=== PATIENT | male | born 1960 | race Two or more races ===

== ENCOUNTER 2017-06-12 09:39 | Emergency (ER) | payer MEDICAID ==
[~2017-06-12] VITALS: Ht 180.3 cm; Wt 105.7 kg
--- NOTE | 2017-06-12 10:00 | NUR ---
[id number]: S/P WITNESSED SEIZURE, Hx OF SEIZURES, TAKES KEPPRA. PATIENT RECEIVED AWAKE AND ALERT. APPEARS IN NO DISTRESS. AO4. SKIN IS WARM TO TOUCH AND NON DIAPHORETIC. PATIENT IS AFEBRILE. VSS. SEIZURE PRECAUTION OBSERVED. IV ACCESS NOTED ON RIGHT WRST
[2017-06-12 10:17] LABS: BASOPHILS # (AUTO) 0.1 /CMM (0.0-0.2); BASOPHILS % (AUTO) 0.7 % (0.0-2.0); EOSINOPHILS # (AUTO) 0.1 /CMM (0.0-0.7); EOSINOPHILS % (AUTO) 0.9 % (0.0-6.0); HEMATOCRIT 35 % (39-51); HEMOGLOBIN 12.4 g/dL (13.5-17.5); LYMPHOCYTES # (AUTO) 1.3 /CMM (0.8-4.8); LYMPHOCYTES % (AUTO) 14.7 % (20.0-44.0); MEAN CORPUSCULAR HEMOGLOBIN 30 PG (26.0-33.0); MEAN CORPUSCULAR HGB CONC 35 g/dl (31.0-36.0); MEAN CORPUSCULAR VOLUME 84 fL (80-96); MONOCYTES # (AUTO) 0.8 /CMM (0.1-1.30); MONOCYTES % (AUTO) 8.8 % (2.0-12.0); NEUTROPHILS # (AUTO) 6.3 /CMM (1.8-8.9); NEUTROPHILS % (AUTO) 74.9 % (43.0-81.0); PLATELET COUNT (AUTO) 280 /CMM (150-450); RDW COEFFICIENT OF VARIATION 12.4 (11.5-15.0); RED BLOOD CELL COUNT(AUTO) 4.18 MIL/uL (4.5-6.0); WHITE BLOOD COUNT (AUTO) 8.6 K/uL (4.3-11.0)
[2017-06-12 10:28] LABS: CALCIUM, SERUM 8.5 mg/dL (8.5-10.1); CREATININE 0.7 mg/dL (0.6-1.3); POTASSIUM 4.4 mmol/L (3.5-5.1)
[2017-06-12 10:39] VITALS: BP 120/68
--- NOTE | 2017-06-12 10:40 | NUR ---
Patient discharged to home in stable condition. Written and verbal after care instructions given. Patient verbalizes understanding of instruction.
== END 2017-06-12 10:41 | disposition home or self-care (01) ==
LOC: ER 09:40
DX: R56.9 Unspecified convulsions (principal)
CPT/HCPCS: 36415; 80048-TC; 85025-TC; A4606; Z7610